=== PATIENT | male | born 1965 | race African-American/Black ===

== ENCOUNTER 2019-04-03 10:31 | Emergency (ER) | payer SELFPAY ==
--- NOTE | 2019-04-03 12:11 | ER Document Report ---
ED Medical Screen (RME) - General Chief Complaint: Abdominal Pain Stated Complaint: ABDOMINAL PAIN Time Seen by Provider: 04/03/19 12:06 TRAVEL OUTSIDE OF THE [place] IN LAST 30 DAYS: No - HPI Notes: 04/03/19 12:09 54-year-old male to the emergency department with complaints of left upper quadrant abdominal pain with associated morning time nausea that began about a week ago. He also states that his pain hurts more when he takes a big deep breath or coughs. Denies any diarrhea. Denies any vomiting. Denies any fevers, chills, chest pain, shortness of breath. He does have high blood pressure. He denies any other medical problems. I have performed a medical screening exam on the patient and determined the patient will need further management by mainside provider. I have placed initial orders to help expedite his care. - Related Data Allergies/Adverse Reactions: No Known Allergies Allergy (Unverified 08/28/12 19:17) Home Medications: Lisinopril Past Medical History - Past Medical History Cardiac Medical History: Reports: Hx Hypertension Denies: Hx Atrial Fibrillation, Hx Congestive Heart Failure, Hx Coronary Artery Disease, Hx Heart Attack, Hx Hypercholesterolemia, Hx Peripheral Vascular Disease, Hx Heart Murmur Pulmonary Medical History: Denies: Hx Tuberculosis Neurological Medical History: Denies: Hx Cerebrovascular Accident, Hx Seizures, Hx Parkinson's Disease GI Medical History: Reports: Hx Gastroesophageal Reflux Disease. Denies: Hx Crohn's Disease, Hx Hiatal Hernia, Hx Irritable Bowel, Hx Liver Failure, Hx Pancreatitis, Hx Ulcer Musculoskeltal Medical History: Denies Hx Multiple Sclerosis Psychiatric Medical History: Denies: Hx Dementia Past Surgical History: Denies: Hx Colostomy, Hx Pacemaker - Immunizations Hx Diphtheria, Pertussis, Tetanus Vaccination: Yes - 2 yrs Physical Exam - Vital signs Vitals: Temp Pulse Resp BP Pulse Ox 97.7 F 76 16 208/107 H 96 04/03/19 11:09 04/03/19 11:09 04/03/19 11:09 04/03/19 11:09 04/03/19 11:09 Course - Vital Signs Vital signs: Temp Pulse Resp BP Pulse Ox 97.7 F 76 16 208/107 H 96 04/03/19 12:06 04/03/19 11:09 04/03/19 12:06 04/03/19 11:09 04/03/19 12:06
--- NOTE | 2019-04-03 12:46 | RADIOLOGY REPORT (SQ) ---
EXAM DESCRIPTION: ACUTE ABDOMEN SERIES COMPLETED DATE/TIME: 04/03/2019 12:37 pm REASON FOR STUDY: LUQ abd pain, worse with cough COMPARISON: None. NUMBER OF VIEWS: Three views. TECHNIQUE: Frontal chest, supine abdomen and upright/decubitus abdomen radiographic images acquired. LIMITATIONS: None. FINDINGS: CHEST: Lungs clear of infiltrates. FREE AIR: None. No abnormal gas collections. BOWEL GAS PATTERN: Nonobstructive pattern. No dilated loops or air fluid levels. CALCIFICATIONS: No suspicious calcifications. HARDWARE: None in the abdomen. SOFT TISSUES: No gross mass or suggestion of organomegaly. BONES: Extensive posttraumatic changes right shoulder with ossification of the CC joint. OTHER: No other significant finding. IMPRESSION: NO RADIOGRAPHIC EVIDENCE FOR ACUTE ABDOMINAL DISEASE. TECHNICAL DOCUMENTATION: JOB ID: [id number] [employer]- All Rights Reserved Reading location - IP/workstation name: [email or web address]
[2019-04-03 13:03] LABS: ABSOLUTE BASOPHILS # (AUTO) 0.2 10^3/uL (0.0-0.2); ABSOLUTE EOSINOPHILS # (AUTO) 0.3 10^3/uL (0.0-0.6); ABSOLUTE LYMPHOCYTES (AUTO) 2.3 10^3/uL (0.5-4.7); ABSOLUTE MONOCYTES (AUTO) 1.5 10^3/uL (0.1-1.4); ABSOLUTE NEUT (AUTO) 8.9 10^3/uL (1.7-8.2); BASOPHILS % (AUTO) 1.1 % (0-2); EOSINOPHILS % (AUTO) 2.5 % (0-6); HEMATOCRIT 45.1 % (37.9-51.0); HEMOGLOBIN 14.8 g/dL (13.5-17.0); LYMPHOCYTES % (AUTO) 17.6 % (13-45); MEAN CORPUSCULAR HEMOGLOBIN 25.8 pg (27.0-33.4); MEAN CORPUSCULAR HGB CONC 32.8 g/dL (32.0-36.0); MEAN CORPUSCULAR VOLUME 79 fl (80-97); MONOCYTES % (AUTO) 11.5 % (3-13); PLATELET COUNT 292 10^3/uL (150-450); RED BLOOD COUNT 5.73 10^6/uL (4.35-5.55); RED CELL DISTRIBUTION WIDTH 14.8 % (11.5-14.0); SEGMENTED NEUTROPHILS % (AUTO) 67.3 % (42-78); TOTAL CELLS COUNTED % (AUTO) 100 %; WHITE BLOOD COUNT 13.2 10^3/uL (4.0-10.5)
[2019-04-03 13:23] LABS: ALBUMIN 3.9 g/dL (3.5-5.0); ALKALINE PHOSPHATASE 76 U/L (38-126); ANION GAP 7 (5-19); ASPARTATE AMINO TRANSFERASE 22 U/L (17-59); BILIRUBIN,DIRECT 0.2 mg/dL (0.0-0.4); BILIRUBIN,TOTAL 0.4 mg/dL (0.2-1.3); BLOOD UREA NITROGEN 21 mg/dL (7-20); CARBON DIOXIDE 24 mmol/L (22-30); CHLORIDE 112 mmol/L (98-107); GLUCOSE 96 mg/dL (75-110); POTASSIUM 4.4 mmol/L (3.6-5.0); TOTAL PROTEIN 7.6 g/dL (6.3-8.2)
[2019-04-03 15:35] LABS: APPEARANCE,URINE CLEAR; BILIRUBIN,URINE NEGATIVE (NEGATIVE); COLOR,URINE YELLOW; GLUCOSE, URINE NEGATIVE (NEGATIVE); KETONES,URINE NEGATIVE (NEGATIVE); LEUKOCYTE ESTERASE,URINE NEGATIVE (NEGATIVE); NITRITE,URINE NEGATIVE (NEGATIVE); PROTEIN,URINE NEGATIVE (NEGATIVE); URINE SPECIFIC GRAVITY 1.016; UROBILINOGEN,URINE NEGATIVE mg/dL (<2.0)
[2019-04-03] MEDS ORDERED: KETOROLAC TROMETHAMINE INJ/PF 30 MG/1 ML SDV IV ONE ×2 (15:54→18:45)
--- NOTE | 2019-04-03 17:13 | RADIOLOGY REPORT (SQ) ---
EXAM DESCRIPTION: CT ABD/PELVIS WITH IV ONLY COMPLETED DATE/TIME: 04/03/2019 4:40 pm REASON FOR STUDY: left sided abd pain COMPARISON: None. TECHNIQUE: CT scan of the abdomen and pelvis performed using helical scanning technique with dynamic intravenous contrast injection. No oral contrast. Images reviewed with lung, soft tissue, and bone windows. Reconstructed coronal and sagittal MPR images reviewed. Delayed images for evaluation of the urinary system also acquired. All images stored on PACS. All CT scanners at this facility use dose modulation, iterative reconstruction, and/or weight based d osing when appropriate to reduce radiation dose to as low as reasonably achievable (ALARA). [facility]: Dose Right [facility]: CareDose [facility]: Dose Right [facility]: Teradose 4D [facility]: Dasher CONTRAST TYPE AND DOSE: contrast/concentration: Isovue 350.00 mg/ml; Total Contrast Delivered: 98.0 ml; Total Saline Delivered: 69.9 ml RENAL FUNCTION: BUN 21 creatinine 1.7. RADIATION DOSE: CT Rad equipment meets quality standard of care and radiation dose reduction techniq ues were employed. CTDIvol: 21.0 - 21.1 mGy. DLP: 2535 mGy-cm.. LIMITATIONS: None. FINDINGS: LOWER CHEST: No significant findings. No nodules or infiltrates. LIVER: Normal size. No masses. No dilated ducts. SPLEEN: Normal size. No focal lesions. PANCREAS: No masses. No significant calcifications. No adjacent inflammation or peripancreatic fluid collections. Pancreatic duct not dilated. GALLBLADDER: No identified stones by CT criteria. No inflammatory changes to suggest cholecystitis. ADRENAL GLANDS: No significant masses or asymmetry. RIGHT KIDNEY AND URETER: Small cortical cyst. No solid masses. No significant calcifications. No hydronephrosis or hydroureter. LEFT KIDNEY AND URETER: No solid masses. No significant calcifications. No hydronephrosis or hydr oureter. AORTA AND VESSELS: No aneurysm. No dissection. Renal arteries, SMA, celiac without stenosis. RETROPERITONEUM: No retroperitoneal adenopathy, hemorrhage or masses. BOWEL AND PERITONEAL CAVITY: No masses or inflammatory changes. No free fluid or peritoneal masses. APPENDIX: Normal. PELVIS: No mass. No free fluid. Normal bladder. ABDOMINAL WALL: No masses. No hernias. BONES: No significant or acute findings. OTHER: No other significant finding. IMPRESSION: NO SIGNIFICANT OR ACUTE FINDING IN THE ABDOMEN OR PELVIS ON CT SCAN WITH IV CONTRAST. I NCIDENTAL SMALL CORTICAL CYST IN THE RIGHT KIDNEY. TECHNICAL DOCUMENTATION: JOB ID: [id number] Quality ID # [id number]: Final reports with documentation of one or more dose reduction techniques (e.g., Au tomated exposure control, adjustment of the mA and/or kV according to patient size, use of iterative reconstruction technique) 2010 [employer]- All Rights Reserved Reading location - IP/workstation name: [email or web address]
--- NOTE | 2019-04-03 18:50 | ER Document Report ---
ED General - General Chief Complaint: Abdominal Pain Stated Complaint: ABDOMINAL PAIN Time Seen by Provider: 04/03/19 12:06 Mode of Arrival: Ambulatory Information source: Patient TRAVEL OUTSIDE OF THE [place] IN LAST 30 DAYS: No - HPI Notes: Patient presents with abdominal pain. Is mainly in the left upper quadrant. He states that approximately week ago he developed cough and cold symptoms. He states the cough is gotten better but now when he does cough he has some left upper quadrant abdominal pain. It is intermittent. Is worse with coughing. It does not radiate. It is moderate. It is sharp. No fevers. No vomiting or diarrhea. No problems with urination or bowel movements. - Related Data Allergies/Adverse Reactions: No Known Allergies Allergy (Unverified 08/28/12 19:17) Home Medications: Lisinopril Past Medical History - General Information source: Patient - Social History Smoking Status: Current Every Day Smoker Frequency of alcohol use: None Drug Abuse: None Family History: Reviewed & Not Pertinent Patient has suicidal ideation: No Patient has homicidal ideation: No - Past Medical History Cardiac Medical History: Reports: Hx Hypertension Denies: Hx Atrial Fibrillation, Hx Congestive Heart Failure, Hx Coronary Artery Disease, Hx Heart Attack, Hx Hypercholesterolemia, Hx Peripheral Vascular Disease, Hx Heart Murmur Pulmonary Medical History: Denies: Hx Tuberculosis Neurological Medical History: Denies: Hx Cerebrovascular Accident, Hx Seizures, Hx Parkinson's Disease GI Medical History: Reports: Hx Gastroesophageal Reflux Disease. Denies: Hx Crohn's Disease, Hx Hiatal Hernia, Hx Irritable Bowel, Hx Liver Failure, Hx Pancreatitis, Hx Ulcer Musculoskeletal Medical History: Denies Hx Multiple Sclerosis Psychiatric Medical History: Denies: Hx Dementia Past Surgical History: Denies: Hx Colostomy, Hx Pacemaker - Immunizations Hx Diphtheria, Pertussis, Tetanus Vaccination: Yes - 2 yrs Review of Systems - Review of Systems Constitutional: denies: Chills, Fever Cardiovascular: denies: Chest pain, Palpitations Respiratory: Cough. denies: Short of breath Gastrointestinal: Abdominal pain -: Yes All other systems reviewed and negative Physical Exam - Vital signs Vitals: Temp Pulse Resp BP Pulse Ox 97.7 F 76 16 208/107 H 96 04/03/19 11:09 04/03/19 11:09 04/03/19 11:09 04/03/19 11:09 04/03/19 11:09 Interpretation: Hypertensive - General General appearance: Appears well, Alert - HEENT Head: Normocephalic, Atraumatic Eyes: Normal Pupils: PERRL - Respiratory Respiratory status: No respiratory distress Chest status: Nontender Breath sounds: Normal Chest palpation: Normal - Cardiovascular Rhythm: Regular Heart sounds: Normal auscultation Murmur: No - Abdominal Inspection: Normal Distension: No distension Bowel sounds: Normal Tenderness: Nontender Organomegaly: No organomegaly - Back Back: Normal, Nontender - Extremities General upper extremity: Normal inspection, Nontender, Normal color, Normal ROM, Normal temperature General lower extremity: Normal inspection, Nontender, Normal color, Normal ROM, Normal temperature, Normal weight bearing. No: Jordi's sign - Neurological Neuro grossly intact: Yes Cognition: Normal Orientation: AAOx4 Alfredo Coma Scale Eye Opening: Spontaneous [place] Coma Scale Verbal: Oriented Alfredo Coma Scale Motor: Obeys Commands [place] Coma Scale Total: 15 Speech: Normal Motor strength normal: LUE, RUE, LLE, RLE Sensory: Normal - Psychological Associated symptoms: Normal affect, Normal mood - Skin Skin Temperature: Warm Skin Moisture: Dry Skin Color: Normal Course - Re-evaluation Re-evalutation: 04/03/19 18:47 Patient presents with left upper quadrant abdominal pain. He has unremarkable imaging, labs, and exam. He is also out of his blood pressure medicine for the last 3 months and has uncontrolled blood pressure. I will give him a new prescription for blood pressure medication. - Vital Signs Vital signs: Temp Pulse Resp BP Pulse Ox 97.7 F 76 16 208/107 H 96 04/03/19 12:06 04/03/19 11:09 04/03/19 12:06 04/03/19 11:09 04/03/19 12:06 - Laboratory Result Diagrams: 04/03/19 12:44 04/03/19 12:44 Laboratory results interpreted by me: 04/03/19 04/03/19 12:44 12:44 WBC 13.2 H RBC 5.73 H MCV 79 L MCH 25.8 L RDW 14.8 H Absolute Neuts (auto) 8.9 H Absolute Monos (auto) 1.5 H Chloride 112 H BUN 21 H Creatinine 1.71 H Est GFR ( Amer) 51 L Est GFR (MDRD) Non-Af 42 L Lipase 377.4 H - Diagnostic Test Radiology reviewed: Image reviewed, Reports reviewed Discharge - Discharge Clinical Impression: Left upper quadrant abdominal pain of unknown etiology, Uncontrolled hypertension Condition: Stable Disposition: HOME, SELF-CARE Instructions: Abdominal Pain ([facility]) Additional Instructions: Please call your primary care doctor as soon as possible to arrange for a recheck. Your blood pressure is very high. Please get the prescription filled and take your blood pressure medication as instructed. If you leave your blood pressure uncontrolled it can lead to strokes, blindness, kidney failure, heart attacks, and even . Prescriptions: Hydrocodone/Acetaminophen [[place] 5-325 mg Tablet] 1 tab PO Q6 PRN 3 Days #12 tablet PRN Reason: Amlodipine Besylate [Norvasc 5 mg Tablet] 5 mg PO DAILY #30 tablet Forms: Elevated Blood Pressure, Return to Work
[2019-04-03 19:15] VITALS: BP 188/112
== END 2019-04-03 19:23 | disposition home or self-care (01) ==
LOC: ER 10:31
DX: R10.12 Left upper quadrant pain (principal); I10 Essential (primary) hypertension; R05 Cough; F17.200 Nicotine dependence, unspecified, uncomplicated; Z87.19 Personal history of other diseases of the digestive system; Z79.899 Other long term (current) drug therapy
CPT/HCPCS: 99284; 96374; 36415; 83690; 85025; 80053; 81001; 74022; 74177; J1885

== ENCOUNTER 2019-05-24 00:48 | Emergency (ER) | payer SELFPAY ==
[2019-05-24 02:43] LABS: HEMATOCRIT 44.3 % (37.9-51.0); HEMOGLOBIN 15.1 g/dL (13.5-17.0); MEAN CORPUSCULAR HGB CONC 34.1 g/dL (32.0-36.0); MEAN CORPUSCULAR VOLUME 76 fl (80-97); PLATELET COUNT 274 10^3/uL (150-450); RED BLOOD COUNT 5.81 10^6/uL (4.35-5.55); RED CELL DISTRIBUTION WIDTH 15.1 % (11.5-14.0); WHITE BLOOD COUNT 9.2 10^3/uL (4.0-10.5)
[2019-05-24 02:47] LABS: APPEARANCE,URINE CLEAR; BILIRUBIN,URINE NEGATIVE (NEGATIVE); COLOR,URINE YELLOW; GLUCOSE, URINE NEGATIVE (NEGATIVE); KETONES,URINE NEGATIVE (NEGATIVE); LEUKOCYTE ESTERASE,URINE NEGATIVE (NEGATIVE); NITRITE,URINE NEGATIVE (NEGATIVE); PROTEIN,URINE NEGATIVE (NEGATIVE); URINE SPECIFIC GRAVITY 1.013; UROBILINOGEN,URINE NEGATIVE mg/dL (<2.0)
[2019-05-24 02:54] LABS: ALBUMIN 4.2 g/dL (3.5-5.0); ALKALINE PHOSPHATASE 79 U/L (38-126); ANION GAP 11 (5-19); ASPARTATE AMINO TRANSFERASE 28 U/L (17-59); BILIRUBIN,DIRECT 0.3 mg/dL (0.0-0.4); BILIRUBIN,TOTAL 0.5 mg/dL (0.2-1.3); BLOOD UREA NITROGEN 18 mg/dL (7-20); CALCIUM 9.3 mg/dL (8.4-10.2); CARBON DIOXIDE 21 mmol/L (22-30); CHLORIDE 108 mmol/L (98-107); GLUCOSE 105 mg/dL (75-110); POTASSIUM 4.6 mmol/L (3.6-5.0); TOTAL PROTEIN 8.4 g/dL (6.3-8.2)
[2019-05-24 03:08] LABS: TROPONIN I 0.057 ng/mL
[2019-05-24] MEDS ORDERED: LABETALOL HCL INJ 20 MG/4 ML DISP.SYRIN IV ONE ×2 (03:11→06:29)
[2019-05-24 03:19] LABS: ABSOLUTE LYMPHOCYTES# (MANUAL) 0.6 10^3/uL (0.5-4.7); ABSOLUTE MONOCYTES # (MANUAL) 1.6 10^3/uL (0.1-1.4); BASOPHILS % (MANUAL) 1 % (0-2); EOSINOPHILS % (MANUAL) 0 % (0-6); LYMPHOCYTES % (MANUAL) 6 % (13-45); MONOCYTES % (MANUAL) 17 % (3-13); SEGMENTED NEUTROPHILS % (MAN) 75 % (42-78); TOTAL CELLS COUNTED 100
[2019-05-24 03:21] LABS: ANISOCYTOSIS SLIGHT
[2019-05-24 03:22] LABS: HYPOCHROMASIA SLIGHT
--- NOTE | 2019-05-24 03:22 | ER Document Report ---
ED General - General Chief Complaint: Shortness Of Breath Stated Complaint: FLU SYMPTOMS Time Seen by Provider: 05/24/19 03:10 Mode of Arrival: Ambulatory Information source: Patient TRAVEL OUTSIDE OF THE [place] IN LAST 30 DAYS: No - HPI Onset: Yesterday Onset/Duration: Gradual Quality of pain: Achy, Pressure Severity: Moderate Pain Level: 3 Associated symptoms: Chest pain, Chills, Productive cough, Diarrhea, Nausea, Shortness of breath, Sweating Exacerbated by: Coughing Relieved by: Denies Similar symptoms previously: No Recently seen / treated by doctor: No Notes: 54 year old male smoker with a history of HTN here for subjective fevers, chills, sweats, body aches, headache, cough, chest pains. The patient has been around his nephews recently who just tested positive for the Flu. The patient says the chest pain seems to be due to coughing but every once in a while he will have chest pain when not coughing. The patient went to [facility] this last weekend and he forgot to bring his HTN meds so he has not taken these (HCTZ and Lisinorpil) for the last several days. - Related Data Allergies/Adverse Reactions: No Known Allergies Allergy (Verified 05/24/19 01:47) Past Medical History - General Information source: Patient - Social History Smoking Status: Current Every Day Smoker Chew tobacco use (# tins/day): No Frequency of alcohol use: Occasional Drug Abuse: Marijuana Family History: Reviewed & Not Pertinent Patient has suicidal ideation: No Patient has homicidal ideation: No - Past Medical History Cardiac Medical History: Reports: Hx Hypertension Denies: Hx Atrial Fibrillation, Hx Congestive Heart Failure, Hx Coronary Artery Disease, Hx Heart Attack, Hx Hypercholesterolemia, Hx Peripheral Vascular Disease, Hx Heart Murmur Pulmonary Medical History: Denies: Hx Tuberculosis Neurological Medical History: Denies: Hx Cerebrovascular Accident, Hx Seizures, Hx Parkinson's Disease GI Medical History: Reports: Hx Gastroesophageal Reflux Disease. Denies: Hx Crohn's Disease, Hx Hiatal Hernia, Hx Irritable Bowel, Hx Liver Failure, Hx Pancreatitis, Hx Ulcer Musculoskeletal Medical History: Denies Hx Multiple Sclerosis Psychiatric Medical History: Denies: Hx Dementia Past Surgical History: Denies: Hx Colostomy, Hx Pacemaker - Immunizations Hx Diphtheria, Pertussis, Tetanus Vaccination: Yes - 2 yrs Review of Systems - Review of Systems Constitutional: Chills, Diaphoresis, Fever, Weakness EENT: No symptoms reported Cardiovascular: Chest pain Respiratory: Cough, Short of breath Gastrointestinal: Nausea Genitourinary: No symptoms reported Male Genitourinary: No symptoms reported Musculoskeletal: No symptoms reported Skin: No symptoms reported Hematologic/Lymphatic: No symptoms reported Neurological/Psychological: Headaches -: Yes All other systems reviewed and negative Physical Exam - Vital signs Vitals: Temp Pulse Resp BP Pulse Ox 99.9 F 112 H 20 227/127 H 94 05/24/19 01:15 05/24/19 01:15 05/24/19 01:15 05/24/19 01:15 05/24/19 01:15 - Notes Notes: GENERAL: Somewhat ill-appearing, well-nourished and in no acute distress. HEAD: Atraumatic, normocephalic. EYES: Pupils equal round and reactive to light, extraocular movements intact, sclera anicteric, conjunctiva are normal. ENT: TMs normal, nares patent, oropharynx clear without exudates. Moist mucous membranes. NECK: Normal range of motion, supple without lymphadenopathy or JVD. LUNGS: Breath sounds clear to auscultation bilaterally and equal. No wheezes rales or rhonchi. Patient is having coughing spells. HEART: Regular rate and rhythm without murmurs, rubs or gallops. ABDOMEN: Soft, nontender, normoactive bowel sounds. No guarding, no rebound. No masses appreciated. EXTREMITIES: Normal range of motion, no pitting or edema. No clubbing or cyanosis. NEUROLOGICAL: Cranial nerves II through XII grossly intact. Normal speech, normal gait. PSYCH: Normal mood, normal affect. SKIN: Warm, Dry, normal turgor, no rashes or lesions noted. Course - Re-evaluation Re-evalutation: 05/24/19 05:12 The patient is here for cough, congestion, body aches, fevers. The patient has been around people with the Flu but he tested negative for the Flu. Chest Xray showed possible infectious process and possibly a mass so a follow up with CT was ordered and is pending. Patient was fairly hypertensive initially but this was likely due to him not taking his BP meds for the last 4-5 days. 05/24/19 06:10 CTA of chest shows no acute process and specifically no masses or infectious process as thought to be seen on Xray. Since patient is having fevers to 100.8 F in the ER and he has symptoms of pneumonia (productive cough, weakness, body aches) will treat with Levaquin. Patient has a sightly elevated Trop and BNP which are likely reactionary to his infecitous process. Will nonetheless repeat the Troponin to ensure no large rise. Assuming patient's second Trop is similar to the first which is only slightly elevated, patient is safe for outpatient follow up. - Vital Signs Vital signs: Temp Pulse Resp BP Pulse Ox 100.8 F H 108 H 26 H 181/91 H 96 05/24/19 04:59 05/24/19 01:42 05/24/19 04:31 05/24/19 04:31 05/24/19 04:31 - Laboratory Result Diagrams: 05/24/19 02:15 05/24/19 02:15 Laboratory results interpreted by me: 05/24/19 05/24/19 05/24/19 02:15 02:15 02:15 RBC 5.81 H MCV 76 L MCH 26.0 L RDW 15.1 H Lymphocytes % (Manual) 6 L Monocytes % (Manual) 17 H Abs Monocytes (Manual) 1.6 H Chloride 108 H Carbon Dioxide 21 L Creatinine 1.70 H Est GFR ( Amer) 51 L Est GFR (MDRD) Non-Af 42 L NT-Pro-B Natriuret Pep 402 H Total Protein 8.4 H Urine Blood 05/24/19 02:15 RBC MCV MCH RDW Lymphocytes % (Manual) Monocytes % (Manual) Abs Monocytes (Manual) Chloride Carbon Dioxide Creatinine Est GFR ( Amer) Est GFR (MDRD) Non-Af NT-Pro-B Natriuret Pep Total Protein Urine Blood SMALL H - Diagnostic Test Radiology reviewed: Image reviewed, Reports reviewed - EKG Interpretation by Me EKG shows normal: Sinus rhythm, Adams, Intervals, QRS Complexes Rate: Tachycardia Rhythm: NSR Additional EKG results interpreted by me: 05/24/19 03:32 LVH, T wave inversions in V3-V6, I, aVL Discharge - Discharge Clinical Impression: Pneumonia Qualifiers: Pneumonia type: due to unspecified organism Laterality: unspecified laterality Lung location: unspecified part of lung Qualified Code(s): J18.9 - Pneumonia, unspecified organism Disposition: HOME, SELF-CARE Instructions: Pneumonia ([facility]) Additional Instructions: Take Levaquin (antibiotic) as prescribed. Follow up with your primary care doctor or the primary care doctor provided in your discharge paperwork. You had a slightly elevated Troponin and BNP (cardiac labs) which you should have your primary care doctor follow up. Return to an ER for persistent high fevers, chest pains with radiation to your arm or jaw, trouble breathing or if you are worse. Prescriptions: Levofloxacin [Levaquin 750 mg Tablet] 750 mg PO DAILY #5 tablet
[2019-05-24 03:23] LABS: PLATELET COMMENT ADEQUATE
--- NOTE | 2019-05-24 04:21 | RADIOLOGY REPORT (SQ) ---
EXAM DESCRIPTION: X-RAY CHEST TWO VIEWS CLINICAL HISTORY: 54 years Male eval for pneumonia/SOB COMPARISON: None TECHNIQUE: PA and lateral chest x-rays at 0400 hours on 05/24/2019. FINDINGS: EKG leads overlie the chest. The lungs are adequately expanded. Mild elevation of the left hemidiaphragm. There is a small airspace consolidation in the superior segment of the left lower lobe on the lateral view overlying the projection of the T6 and T7 vertebral bodies. This may represent a left paraspinal mass as seen on the PA film with focal left lateral bulging of the pleural stripe. The costophrenic sulci are sharp. There is bilateral peribronchial cuffing, most prominent in the right infrahilar region. The heart is normal in size with normal pulmonary vascularity. Increased cortical bony density is suggested involving the right seventh posterior rib and posteromedial aspect of the left seventh rib. No fracture is noted. IMPRESSION: Left lower lobe pneumonia versus a left paraspinal mass. Peribronchial cuffing is also noted suggestive of chronic bronchitis/bronchiolitis. Increased density in the right seventh posterior rib and medial portion of the left seventh posterior rib is of uncertain significance.
[2019-05-24 04:40] LABS: A TYPE INFLUENZA AG NEGATIVE (NEGATIVE); B INFLUENZA AG NEGATIVE (NEGATIVE)
--- NOTE | 2019-05-24 06:02 | RADIOLOGY REPORT (SQ) ---
EXAM DESCRIPTION: CT CHEST ANGIOGRAPHY WITHOUT THEN WITH IV CONTRAST COMPLETED DATE/TME: 05/24/2019 04:27 CLINICAL HISTORY: C/O SOB, RECENT FLU EXPOSURE. COMPARISON: None Available. TECHNIQUE: CTA of the chest obtained following the uncomplicated intravenous administration of 100 mL Omnipaque 350. 3-D/MIP reformatted images of the chest available for evaluation. FINDINGS: Chest: Pulmonary arteries: Contrast bolus is suboptimal. No central pulmonary embolus identified. Suboptimal evaluation of the lobar, segmental, subsegmental pulmonary arterial branches due to contrast bolus timing. Thyroid:No abnormalities of the visualized thyroid. Great Vessels: Calcified atherosclerotic plaque of a normal caliber thoracic aorta. Thoracic Aorta:No abnormalities of the thoracic aorta identified. Heart:No cardiomegaly, significant pericardial effusion, or coronary artery atherosclerosis Lymph Nodes:No enlarged mediastinal lymph nodes identified. Esophagus:No abnormalities of the esophagus identified. Other:No additional findings. Lungs: No confluent airspace consolidation. Minimal scattered linear opacities likely representing subsegmental atelectasis. Pleura:No pleural effusion or pneumothorax. Trachea/Airways:No abnormalities of the visualized trachea or airways. Bones: No acute osseous abnormality. Ankylosis and osteophytosis at the bilateral costovertebral junctions at T7. Multilevel endplate spondylosis throughout the thoracic spine. Upper Abdomen:Limited images of the upper abdomen demonstrate no definite abnormalities of visualized portions of the liver, gallbladder, pancreas, spleen, adrenal glands, or kidneys. IMPRESSION: 1. No central pulmonary embolus. Suboptimal evaluation of the lobar, segmental, and subsegmental pulmonary arterial branches due to contrast bolus timing. 2. Normal scattered areas of subsegmental atelectasis. No acute pneumonic process. This exam was performed according to our departmental dose-optimization program, which includes automated exposure control, adjustment of the mA and/or kV according to patient size and/or use of iterative reconstruction technique.
[2019-05-24] MEDS ORDERED: LEVOFLOXACIN 750 MG TABLET PO ONE (06:25)
[2019-05-24] MEDS ORDERED: IPRATROPIUM/ALBUTEROL 0.5-2.5 MG/3 ML AMPUL NEB ONE (06:29)
[2019-05-24] MEDS ORDERED: BENZONATATE 100 MG CAPSULE PO ONE (06:30)
--- NOTE | 2019-05-24 07:59 | EKG REPORT ---
SEVERITY:- ABNORMAL ECG - SINUS TACHYCARDIA PROBABLE LEFT ATRIAL ABNORMALITY PROBABLE LVH WITH SECONDARY REPOL ABNRM ABNORMAL T, PROBABLE ISCHEMIA, LATERAL LEADS : Confirmed by: Nydia Back MD 24-May-2019 07:58:31
--- NOTE | 2019-05-24 10:02 | ER Document Report ---
Doctor's Note Notes: 05/24/19 10:01 I just reassessed patient at 10 AM. He states he still having generalized body aches headache and cough. He denies any chest pain. He states he has some shortness of breath when he walks around. Patient symptoms seem very consistent with an infectious process now with a coronary artery disease process. I am going to discharge the patient home with the prescription that Dr. Gomez prescribed. In addition I am going to add some pain medication for home. His saturations are 98% on room air with a heart rate of 85 at this time.
[2019-05-24 10:17] VITALS: BP 185/87
== END 2019-05-24 10:14 | disposition home or self-care (01) ==
LOC: ER 00:48
DX: J18.9 Pneumonia, unspecified organism (principal); R06.02 Shortness of breath; R07.9 Chest pain, unspecified; R05 Cough; R19.7 Diarrhea, unspecified; R11.0 Nausea; R61 Generalized hyperhidrosis; F17.200 Nicotine dependence, unspecified, uncomplicated; I10 Essential (primary) hypertension
CPT/HCPCS: 93005; 36415; 87040; 85025; 80053; 81001; 84484; 87804; 83880; 71046; 71275; 93010; J3490; J7620; 87150; 94640; 96374; 96376; 99284

== ENCOUNTER 2019-08-11 20:51 | Emergency (ER) | payer SELFPAY ==
[2019-08-11] MEDS ORDERED: PREDNISONE 20 MG TABLET PO ONE (21:04)
[2019-08-11] MEDS ORDERED: IPRATROPIUM/ALBUTEROL 0.5-2.5 MG/3 ML AMPUL NEB ONE ×2 (21:04→22:13)
[2019-08-11] MEDS: ALBUTEROL SULFATE 0.083% NEB 2.5 MG/3 ML AMPUL NEB SCH ×2 (21:12→22:44)
[2019-08-11 21:50] LABS: ABSOLUTE BASOPHILS # (AUTO) 0.1 10^3/uL (0.0-0.2); ABSOLUTE EOSINOPHILS # (AUTO) 0.7 10^3/uL (0.0-0.6); ABSOLUTE LYMPHOCYTES (AUTO) 2.3 10^3/uL (0.5-4.7); ABSOLUTE MONOCYTES (AUTO) 1.7 10^3/uL (0.1-1.4); ABSOLUTE NEUT (AUTO) 7.6 10^3/uL (1.7-8.2); BASOPHILS % (AUTO) 0.7 % (0-2); EOSINOPHILS % (AUTO) 5.5 % (0-6); HEMATOCRIT 43.1 % (37.9-51.0); HEMOGLOBIN 14.5 g/dL (13.5-17.0); LYMPHOCYTES % (AUTO) 18.3 % (13-45); MEAN CORPUSCULAR HEMOGLOBIN 26.1 pg (27.0-33.4); MEAN CORPUSCULAR HGB CONC 33.7 g/dL (32.0-36.0); MEAN CORPUSCULAR VOLUME 78 fl (80-97); MONOCYTES % (AUTO) 14.1 % (3-13); PLATELET COUNT 269 10^3/uL (150-450); RED BLOOD COUNT 5.56 10^6/uL (4.35-5.55); RED CELL DISTRIBUTION WIDTH 15.3 % (11.5-14.0); SEGMENTED NEUTROPHILS % (AUTO) 61.4 % (42-78); TOTAL CELLS COUNTED % (AUTO) 100 %; WHITE BLOOD COUNT 12.3 10^3/uL (4.0-10.5)
--- NOTE | 2019-08-11 21:51 | RADIOLOGY REPORT (SQ) ---
XR CHEST 1 VIEW EXAM DATE: 08/11/2019 8:53 PM CDT HISTORY: Wheezing. COMPARISON: 05/24/2019 FINDINGS: The heart size is within normal limits. There is no pulmonary vascular congestion. No consolidation, pleural effusion, or pneumothorax is seen. IMPRESSION: No evidence of acute cardiopulmonary disease.
[2019-08-11 22:04] LABS: ALBUMIN 3.8 g/dL (3.5-5.0); ALKALINE PHOSPHATASE 75 U/L (38-126); ANION GAP 5 (5-19); ASPARTATE AMINO TRANSFERASE 24 U/L (17-59); BILIRUBIN,TOTAL 0.5 mg/dL (0.2-1.3); BLOOD UREA NITROGEN 17 mg/dL (7-20); CALCIUM 8.9 mg/dL (8.4-10.2); CARBON DIOXIDE 24 mmol/L (22-30); CHLORIDE 108 mmol/L (98-107); GLUCOSE 96 mg/dL (75-110); POTASSIUM 4.3 mmol/L (3.6-5.0); TOTAL PROTEIN 7.5 g/dL (6.3-8.2)
[2019-08-11 22:05] LABS: APPEARANCE,URINE CLEAR; BILIRUBIN,URINE NEGATIVE (NEGATIVE); COLOR,URINE YELLOW; GLUCOSE, URINE NEGATIVE (NEGATIVE); KETONES,URINE NEGATIVE (NEGATIVE); LEUKOCYTE ESTERASE,URINE SMALL (NEGATIVE); NITRITE,URINE NEGATIVE (NEGATIVE); PROTEIN,URINE NEGATIVE (NEGATIVE); URINE SPECIFIC GRAVITY 1.014; UROBILINOGEN,URINE NEGATIVE mg/dL (<2.0)
[2019-08-11] MEDS ORDERED: LISINOPRIL 10 MG TABLET PO ONE (22:14)
--- NOTE | 2019-08-11 22:23 | ER Document Report ---
ED General - General Chief Complaint: Shortness Of Breath Stated Complaint: DIFFICULTY BREATHING Time Seen by Provider: 08/11/19 21:53 Notes: 54-year-old male with hypertension presents to the emergency department with acute shortness of breath. Patient states that it started on Wednesday and he noticed that he had wheezing. He tried to use an inhaler and initially had a response but it was only transient. He states that is gotten progressively worse to the point where he decided to seek evaluation in the emergency department. No fevers or chills, no COVID exposures, patient is self isolated with his family and has not been at work. No cough, no myalgias, no anosmia, no other complaints. No chest pain patient states that he has never been formally diagnosed with asthma. Patient is a smoker but has had 3 cigarettes in the last week. No other complaints. Of note patient's most recent blood pressure is 218/126. TRAVEL OUTSIDE OF THE [place] IN LAST 30 DAYS: No - Related Data Allergies/Adverse Reactions: No Known Allergies Allergy (Verified 05/24/19 01:47) Home Medications: Lisinopril Past Medical History - Social History Smoking Status: Current Every Day Smoker Family History: Reviewed & Not Pertinent Patient has suicidal ideation: No Patient has homicidal ideation: No - Past Medical History Cardiac Medical History: Reports: Hx Hypertension Denies: Hx Atrial Fibrillation, Hx Congestive Heart Failure, Hx Coronary Artery Disease, Hx Heart Attack, Hx Hypercholesterolemia, Hx Peripheral Vascular Disease, Hx Heart Murmur Pulmonary Medical History: Denies: Hx Tuberculosis Neurological Medical History: Denies: Hx Cerebrovascular Accident, Hx Seizures, Hx Parkinson's Disease GI Medical History: Reports: Hx Gastroesophageal Reflux Disease. Denies: Hx Crohn's Disease, Hx Hiatal Hernia, Hx Irritable Bowel, Hx Liver Failure, Hx Pancreatitis, Hx Ulcer Musculoskeletal Medical History: Denies Hx Multiple Sclerosis Psychiatric Medical History: Denies: Hx Dementia Past Surgical History: Denies: Hx Colostomy, Hx Pacemaker - Immunizations Hx Diphtheria, Pertussis, Tetanus Vaccination: Yes - 2 yrs Review of Systems - Review of Systems Constitutional: See HPI EENT: No symptoms reported Cardiovascular: See HPI Respiratory: See HPI Gastrointestinal: No symptoms reported Genitourinary: No symptoms reported Male Genitourinary: No symptoms reported Musculoskeletal: See HPI Skin: No symptoms reported Hematologic/Lymphatic: No symptoms reported Neurological/Psychological: See HPI Physical Exam - Vital signs Vitals: Temp 98.1 F 08/11/19 20:51 - Notes Notes: PHYSICAL EXAMINATION: Reviewed vital signs and charting by RN GENERAL: Alert, interacts well. No acute distress. HEAD: Normocephalic, atraumatic. EYES: Pupils equal and round. Extraocular movements intact. ENT: Oral mucosa moist, tongue midline. NECK: Full range of motion. Trachea midline. LUNGS: Diffuse expiratory wheezes but patient is moving air, no rales or rhonchi. Mild respiratory distress and tachypneic ranging 25-35. HEART: Regular rate and rhythm. No murmur ABDOMEN: soft, non-tender. No distention. Bowel sounds present EXTREMITIES: Moves all 4 extremities spontaneously. No edema, No cyanosis. PSYCH: Normal affect, normal mood. SKIN: Warm, dry, normal turgor. No rashes or lesions noted. Course - Re-evaluation Re-evalutation: 08/11/19 22:18 Patient presents with diffuse wheezing. At time of presentation patient is not hypoxemic, but is mildly tachypneic and hypertensive because he has not been taking his antihypertensives. No retractions. Patient did clinically improve after receiving nebulizers here in the emergency department and magnesium 2 g IV. Chest x-ray without evidence of an acute pneumonia. Patient able to ambulate without any respiratory distress. Based on patient's overall reassuring assessment, I believe they are stable for outpatient management with steroids. Patient was impressively hypertensive but has not been on his antihypertensives for 1 week because he is falling short. I did give him 1 dose of hydralazine 10 mg IV once here in the emergency department and did give him his home medications, lisinopril 40 mg p.o. once and hydrochlorothiazide 12.5 mg p.o. once here in the emergency department. I am also giving him a 30-day supply of lisinopril and hydrochlorothiazide to bridge him until he can see primary care. I do not suspect an acute alternative pathology at this time based on history and exam including acute pulmonary embolus, ACS, pneumothorax, or aortic dissection. At this time will discharge with return precautions and follow-up recommendations. Verbal discharge instructions given a the bedside and opportunity for questions given. Medication warnings reviewed. Patient is in agreement with this plan and has verbalized understanding of return precautions and the need for primary care follow-up in the next 24-72 hours. 08/12/19 03:57 - Vital Signs Vital signs: Temp Pulse Resp BP Pulse Ox 98.1 F 75 18 174/104 H 98 08/11/19 21:02 08/11/19 21:02 08/12/19 02:23 08/12/19 02:23 08/12/19 02:23 - Laboratory Result Diagrams: 08/11/19 21:35 08/11/19 21:35 Laboratory results interpreted by me: 08/11/19 08/11/19 08/11/19 21:35 21:35 21:53 WBC 12.3 H RBC 5.56 H MCV 78 L MCH 26.1 L RDW 15.3 H [place] % (Auto) 14.1 H Absolute Monos (auto) 1.7 H Absolute Eos (auto) 0.7 H Chloride 108 H Creatinine 1.40 H Est GFR (MDRD) Non-Af 53 L Urine Blood SMALL H Ur Leukocyte Esterase SMALL H Discharge - Discharge Clinical Impression: Asthma exacerbation Qualifiers: Asthma severity: moderate Asthma persistence: unspecified Qualified Code(s): J45.901 - Unspecified asthma with (acute) exacerbation Condition: Good Disposition: HOME, SELF-CARE Additional Instructions: You were seen for an asthma exacerbation. Your symptoms improved with treatment here in the emergency department. However, it is very important that you return to the emergency department immediately if you began to have worsening difficulty breathing that does not respond to your normal home nebulizers. You are also being sent home on a five-day course of steroids that you should start taking tomorrow. Please also follow closely with your primary care physician. you should also return to emergency department if you develop fever greater than 101, persistent cough, persistent vomiting, pass out, or any other symptoms that are concerning to you. Prescriptions: Prednisone [Deltasone 20 mg Tablet] 60 mg PO DAILY #15 tablet Hydrochlorothiazide 12.5 mg PO DAILY #30 capsule Lisinopril [Zestril] 40 mg PO DAILY 30 Days #30 tablet
[2019-08-11] MEDS ORDERED: HYDROCHLOROTHIAZIDE 12.5 MG TABLET PO ONE (22:27)
[2019-08-11] MEDS: MAGNESIUM SULFATE/D5W 1 GM/100 ML RTUPB IV SCH ×2 (22:37→23:50)
[2019-08-12] MEDS ORDERED: ALBUTEROL SULFATE 0.083% NEB 2.5 MG/3 ML AMPUL NEB ONE (02:02)
[2019-08-12] MEDS ORDERED: HYDRALAZINE HCL INJ/PF 20 MG/1 ML SDV IV ONE (02:02)
[2019-08-12 04:27] VITALS: BP 225/121
[2019-08-12] MEDS ORDERED: ALBUTEROL SULFATE HFA (90 MCG/PUFF) 8 GM MDI (1 MDI/ER DISP) IH ONE (04:34)
--- NOTE | 2019-08-13 10:21 | EKG REPORT ---
SEVERITY:- ABNORMAL ECG - SINUS RHYTHM ADA, CONSIDER BIATRIAL ABNORMALITIES PROBABLE LVH WITH SECONDARY REPOL ABNRM ANTERIOR Q WAVES, POSSIBLY DUE TO LVH ABNORMAL T, PROBABLE ISCHEMIA, ANT-LAT LEADS : Confirmed by: Nolan Ronquillo 13-Aug-2019 10:20:36
== END 2019-08-12 04:39 | disposition home or self-care (01) ==
LOC: ER 20:51
DX: J45.901 Unspecified asthma with (acute) exacerbation (principal); F17.210 Nicotine dependence, cigarettes, uncomplicated; I10 Essential (primary) hypertension
CPT/HCPCS: 93005; 94640 ×2; 99285; 96375; 96365; 96366; 36415; 85025; 80053; 81001; 71045; 93010; J0360; J3475; J7512; J7620

== ENCOUNTER 2019-12-13 06:18 | Emergency (ER) | payer SELFPAY ==
--- NOTE | 2019-12-13 06:58 | ER Document Report ---
ED Resuscitation - General Chief Complaint: Unresponsive Stated Complaint: unresponsive TRAVEL OUTSIDE OF THE [place] IN LAST 30 DAYS: No - HPI Notes: 54-year-old male arrives in cardiac arrest. Patient was initially greeted in the parking lot of our ED lobby. He was on the ground, unresponsive, not breathing and did not have a pulse. CPR was started and patient was brought back to resuscitation bay. HPI is limited due to the acuity of the situation. - Related Data Allergies/Adverse Reactions: No Known Allergies Allergy (Verified 05/24/19 01:47) Past Medical History - Social History Smoking Status: Unknown if Ever Smoked Family History: Reviewed & Not Pertinent - Past Medical History Cardiac Medical History: Reports: Hx Hypertension Denies: Hx Atrial Fibrillation, Hx Congestive Heart Failure, Hx Coronary Artery Disease, Hx Heart Attack, Hx Hypercholesterolemia, Hx Peripheral Vascular Disease, Hx Heart Murmur Pulmonary Medical History: Denies: Hx Tuberculosis Neurological Medical History: Denies: Hx Cerebrovascular Accident, Hx Seizures, Hx Parkinson's Disease GI Medical History: Reports: Hx Gastroesophageal Reflux Disease. Denies: Hx Crohn's Disease, Hx Hiatal Hernia, Hx Irritable Bowel, Hx Liver Failure, Hx Pancreatitis, Hx Ulcer Musculoskeletal Medical History: Denies Hx Multiple Sclerosis Psychiatric Medical History: Denies: Hx Dementia Past Surgical History: Denies: Hx Colostomy, Hx Pacemaker - Immunizations Hx Diphtheria, Pertussis, Tetanus Vaccination: Yes - 2 yrs Review of Systems - Review of Systems -: Yes ROS unobtainable due to patient's medical condition Physical Exam - General General appearance: Unresponsive - HEENT Head: Normocephalic, Atraumatic Pupils: Dilated, Fixed - Respiratory Respiratory status: Other - No respiratory effort - Cardiovascular Notes: No palpable central or distal pulses, no appreciable heart sounds on auscultation - Abdominal Inspection: Obese - Extremities General lower extremity: No: Edema - Neurological Alfredo Coma Scale Eye Opening: None Alfredo Coma Scale Verbal: None Alfredo Coma Scale Motor: None [place] Coma Scale Total: 3 - Psychological Notes: Unable to assess - Skin Skin Temperature: Cool Course - Re-evaluation Re-evalutation: 54-year-old male found outside of the emergency department pulseless. Immediate CPR and resuscitation was started. Patient was brought back to the resuscitation bay and ACLS protocol was continued. On initial rhythm/pulse silvina ck, patient was in PEA arrest. During our resuscitation patient changed from PEA to V. tach for which he was defibrillated. He then continued in PEA, then on subsequent rhythm checks was noted to be in V. fib. He was defibrillated 3 times for V. fib. Eventually rhythm remained PEA and then asystole. He received epi x6, bicarb x1, calcium x1, amiodarone x1. On the final pulse/rhythm check, he was in asystole. Bedside ultrasound was performed which did not show any cardiac activity. He did not have a pulse, which was verified with multiple people palpating pulse along with Doppler, there was no dopplerable pulse. Additionally put ultrasound to femoral artery and there was no visible contractility. Despite maximum resuscitative efforts, patient succumbed to cardiac arrest, time of was called at 6:41 AM. Patient sister was updated in the family room. She was informed of patient's . She states that patient had been complaining of some shortness of breath yesterday. He woke her up this morning and complained that he could not breathe and that he needed to go to the emergency department. She states that they live about 3 to 4 minutes away from the emergency department. She states that when she pulled on to the hospital premises, patient went unresponsive. Per chart review, patient does not appear to have a PCP. Looks like he has a history of hypertension and possible asthma. The certificate to be filled out. land examiner aware. Critical Care Note - Critical Care Note Total time excluding time spent on procedures (mins): 35 Comments: Critical care time related to active cardiac arrest and active resuscitation Discharge - Discharge Clinical Impression: Cardiac arrest Disposition:
[2019-12-13 08:23] VITALS: BP 149/47
[2019-12-13] MEDS ORDERED: AMIODARONE HCL INJ 150 MG/3 ML VIAL IV ONE (18:01)
[2019-12-13] MEDS ORDERED: CALCIUM GLUCONATE 1000 MG/10 ML INJ IV ONE (18:01)
[2019-12-13] MEDS ORDERED: EPINEPHRINE INJ 1 MG/10 ML DISP.SYRIN ONE (18:01)
[2019-12-13] MEDS ORDERED: SODIUM BICARBONATE 8.4% INJ 50 MEQ/50 ML DISP.SYRIN ONE (18:01)
== END 2019-12-13 08:10 | disposition expired ==
LOC: ER 06:18
DX: I46.9 Cardiac arrest, cause unspecified (principal); I10 Essential (primary) hypertension
CPT/HCPCS: 99291; 92950; J0610; J0171; J3490; J0282